=== PATIENT | male | born 1930 | race Caucasian/White ===

== ENCOUNTER 2019-05-12 07:09 | Observation (INO) | payer OTHER ==
[~2019-05-12] VITALS: Ht 167.6 cm; Wt 79.8 kg
[2019-05-12 07:24] VITALS: Ht 167.6 cm; Wt 79.8 kg
[2019-05-12 08:26] LABS: BASOPHIL % 0.2 % (0-2); PLATELET COUNT 164 x10^3mcL (130-400); RED CELL DISTRIBUTION WIDTH 13.8 % (11.5-14.5)
[2019-05-12 08:38] LABS: CALCIUM 8.6 mg/dL (8.5-10.1); CARBON DIOXIDE 27.5 mmol/L (21-32); CHLORIDE SERUM 106 mmol/L (98-107); CREATININE SERUM 0.9 mg/dL (0.7-1.3); GLUCOSE SERUM 159 mg/dL (74-106); POTASSIUM SERUM 3.9 mmol/L (3.5-5.1); SODIUM SERUM 143 mmol/L (136-145)
[2019-05-12 08:42] LABS: ALBUMIN 3.6 g/dL (3.4-5.0); ALKALINE PHOSPHATASE 58 U/L (46-116); ALT/SGPT 27 U/L (16-63); AST/SGOT 28 U/L (15-37); BILIRUBIN TOTAL 0.4 mg/dL (0.20-1.00); CHOLESTEROL 167 mg/dL (<200); TOTAL PROTEIN, SERUM 6.8 g/dL (6.4-8.2)
[2019-05-12 09:04] LABS: AMPHETAMINE QUAL UR NONE DETECTED (See below)
[2019-05-12 12:25] VITALS: BP 138/71
[2019-05-12] MEDS ORDERED: METFORMIN HCL1000 MG PO (13:05)
[2019-05-12] MEDS ORDERED: CASODEX50 MG PO (13:10)
[2019-05-12] MEDS ORDERED: GLIMEPIRIDE1 M1 PO (13:10)
[2019-05-12] MEDS ORDERED: ALTOPREV40 M2 PO (13:10)
[2019-05-12 16:10] VITALS: BP 134/69
[2019-05-12 21:03] VITALS: BP 128/61
[2019-05-13 05:24] VITALS: BP 104/62
[2019-05-13 06:44] LABS: BASOPHIL % 0.1 % (0-2); PLATELET COUNT 153 x10^3mcL (130-400); RED CELL DISTRIBUTION WIDTH 13.8 % (11.5-14.5)
[2019-05-13 08:00] VITALS: BP 154/62
[2019-05-13 09:59] VITALS: BP 122/55
[2019-05-13] MEDS ORDERED: NORCO1 TA2 PO (12:15)
[2019-05-13] MEDS ORDERED: NAPROXEN SODIU220 M1 PO (12:18)
== END 2019-05-13 13:30 | disposition home health service (06) ==
LOC: ED 07:09 → DU 10:06
PROVIDERS: Specialist; ADMIT Hospitalist
DX: T79.6XXA Traumatic ischemia of muscle, initial encounter (principal); W19.XXXA Unspecified fall, initial encounter; R55 Syncope and collapse; E86.0 Dehydration; E11.9 Type 2 diabetes mellitus without complications; I10 Essential (primary) hypertension; E78.5 Hyperlipidemia, unspecified; R53.81 Other malaise; Z85.51 Personal history of malignant neoplasm of bladder
CPT/HCPCS: 82962; 97116-GP; 97530-GP; G0378; G0480; J7030; Q0092